=== PATIENT | female | born 1935 | race Caucasian/White ===

== ENCOUNTER 2018-04-02 08:36 | Day surgery (SDC) | payer OTHER ==
[~2018-04-02] VITALS: Ht 165.1 cm; Wt 70.7 kg
[~2018-04-02 08:36] MED LIST: DILT180 PO; NEBI5 PO; WARF2.5 PO
== END 2018-04-02 11:20 | disposition home or self-care (01) ==
LOC: ORSCSDS 08:36
PROVIDERS: Podiatrist Foot & Ankle Surgery
PROC: 0Y6R0Z0 Detachment at Right 2nd Toe, Complete, Open Approach (ICD-10-PCS; principal; 2018-04-02 10:00)
DX: M20.41 Other hammer toe(s) (acquired), right foot (principal); M20.11 Hallux valgus (acquired), right foot; I10 Essential (primary) hypertension; G40.909 Epilepsy, unspecified, not intractable, without status epilepticus; I48.91 Unspecified atrial fibrillation; Z79.01 Long term (current) use of anticoagulants; Z79.899 Other long term (current) drug therapy
CPT/HCPCS: 88300; J0690; J2250; J3010; J7120

== ENCOUNTER → 2021-12-28 | Outpatient (CLI) | payer OTHER | END | disposition home or self-care (01) | LOC: LAB 18:00 | DX: R82.79 Other abnormal findings on microbiological examination of urine (principal) | CPT/HCPCS: 87086 ==